=== PATIENT | male | born 1985 | race Caucasian/White ===

== ENCOUNTER 2023-02-26 21:47 | Inpatient (IN) | payer OTHER ==
--- NOTE | 2023-02-26 21:59 | ED ---
Alcohol HPI - General Stated Complaint: Alcohol Time Seen by Provider: 02/26/23 21:50 Source: patient, EMS, RN notes reviewed Mode of arrival: EMS Limitations: no limitations - History of Present Illness Initial Comments: 37-year-old male with a 16 year history of a call as any known drinks about one fifth of vodka per day who was at [facility] initially upon his arrival and a blood alcohol level of 0.2 05/23/2012 hours later he is reevaluated was 0.357. He has a history of diabetes history of pancreatitis denies any blood per rectum no vomiting. He was sent here for evaluation he also has a history depression and anxiety. MD Complaint: alcohol intoxication - Related Data Home Medications Medication Instructions Recorded Confirmed ARIPiprazole [Abilify] 10 mg PO DAILY 02/26/23 02/26/23 Acetaminophen [Tylenol] 650 mg PO Q4H PRN 02/26/23 02/26/23 Amiodarone [Cordarone] 400 mg PO DAILY 02/26/23 02/26/23 Calcium, Magnesium, Zinc, With Vit 1 tab PO TID PRN 02/26/23 02/26/23 D3 334/134/5mg Chlorpheniramine Maleate 4 mg PO Q4H PRN 02/26/23 02/26/23 [Chlor-Trimeton] Empagliflozin [Jardiance] 25 mg PO DAILY 02/26/23 02/26/23 Ezetimibe [Zetia] 10 mg PO DAILY 02/26/23 02/26/23 Fenofibrate [Lofibra] 160 mg PO DAILY 02/26/23 02/26/23 Hyoscyamine Sulfate [Levsin] 0.125 mg PO QID PRN 02/26/23 02/26/23 Ibuprofen [Motrin Ib] 600 mg PO Q6H PRN 02/26/23 02/26/23 Lipase/Protease/Amylase [Zenpep Dr 1 cap PO DAILY 02/26/23 02/26/23 40,000 Unit Capsule] Loperamide [Imodium] 4 mg PO TID PRN 02/26/23 02/26/23 Losartan [Cozaar] 12.5 mg PO DAILY 02/26/23 02/26/23 Magnesium 500 mg PO DAILY 02/26/23 02/26/23 Multivitamins, Thera [Multivitamin 1 tab PO DAILY 02/26/23 02/26/23 (formulary)] Omeprazole [PriLOSEC] 20 mg PO DAILY 02/26/23 02/26/23 PARoxetine HCL 40 mg PO DAILY 02/26/23 02/26/23 Thiamine [Vitamin B-1] 100 mg PO DAILY 02/26/23 02/26/23 allopurinoL [Zyloprim] 100 mg PO DAILY 02/26/23 02/26/23 cloNIDine HCL [Catapres] 0.1 - 0.3 mg PO DIRECTED PRN 02/26/23 02/26/23 ondansetron HCL [Zofran] 8 mg PO Q6H PRN 02/26/23 02/26/23 Allergies Allergy/AdvReac Type Severity Reaction Status Date / Time No Known Allergies Allergy Verified 02/26/23 21:57 Review of Systems ROS Statement: Those systems with pertinent positive or pertinent negative responses have been documented in the HPI. ROS Other: All systems not noted in ROS Statement are negative. Past Medical History Past Medical History: Hypertension History of Any Multi-Drug Resistant Organisms: None Reported Additional Past Surgical History / Comment(s): ICD Past Psychological History: Anxiety, Depression Smoking Status: Never smoker Past Alcohol Use History: Abuse Past Drug Use History: Marijuana General Exam - General Exam Comments Initial Comments: This is a well-developed well-nourished awake alert oriented 4 male he does have the smell of alcohol conjoiners on his breath Limitations: no limitations General appearance: alert, appears intoxicated Head exam: Present: atraumatic, normocephalic, normal inspection Eye exam: Present: normal appearance, PERRL, EOMI. Absent: scleral icterus, conjunctival injection, periorbital swelling ENT exam: Present: normal exam, mucous membranes moist Neck exam: Present: normal inspection. Absent: tenderness, meningismus, lymphadenopathy Respiratory exam: Present: normal lung sounds bilaterally. Absent: respiratory distress, wheezes, rales, rhonchi, stridor Cardiovascular Exam: Present: regular rate, normal rhythm, normal heart sounds. Absent: systolic murmur, diastolic murmur, rubs, gallop, clicks GI/Abdominal exam: Present: soft, normal bowel sounds. Absent: distended, tenderness, guarding, rebound, rigid Extremities exam: Present: normal inspection, full ROM, normal capillary refill. Absent: tenderness, pedal edema, joint swelling, calf tenderness Back exam: Present: normal inspection Neurological exam: Present: alert, oriented X3, CN II-XII intact Psychiatric exam: Present: normal mood, flat affect Skin exam: Present: warm, dry, intact, normal color. Absent: rash Course Vital Signs 02/26/23 21:50 Temperature 98.0 F Pulse Rate 100 Respiratory 18 Rate Blood Pressure 150/82 O2 Sat by Pulse 100 Oximetry Medical Decision Making - Medical Decision Making I did discuss findings with the patient patient does have evidence of elevated liver enzymes elevated bilirubin with CO2 less than 5. He does demonstrate dehydration. He is at risk for alcohol withdrawal as he does drink about a fifth of vodka per day. I did discuss this with Dr. Andersen. Patient will be admittedWas pt. sent in by a medical professional or institution (, PA, SPD MANAGER, urgent care, hospital, or care home...) When possible be specific @ -[No] Did you speak to anyone other than the patient for history (EMS, parent, family, police, friend...)? What history was obtained from this source @ -[Paramedics upon arrival] Did you review nursing and triage notes (agree or disagree)? Why? @ -[I reviewed and agree with nursing and triage notes] Were old charts reviewed (outside hosp., previous admission, EMS record, old EKG, old radiological studies, urgent care reports/EKG's, care home records)? Report findings @ -[No old charts were reviewed] Differential Diagnosis (chest pain, altered mental status, abdominal pain women, abdominal pain men, vaginal bleeding, weakness, fever, dyspnea, syncope, headache, dizziness, GI bleed, back pain, seizure, CVA, palpatations, mental health, musculoskeletal)? @ -[Alcohol intoxication, alcohol abuse, dehydration] EKG interpreted by me (3pts min.). @ -[As above] X-rays interpreted by me (1pt min.). @ -[As above] CT interpreted by me (1pt min.). @ -[None done] U/S interpreted by me (1pt. min.). @ -[None done] What testing was considered but not performed or refused? (CT, X-rays, U/S, labs)? Why? @ -[None] What meds were considered but not given or refused? Why? @ -[None] Did you discuss the management of the patient with other professionals (professionals i.e. , PA, SPD MANAGER, lab, RT, psych nurse, social media senior associate, rock wool applicator, teacher, officer captain, family service caseworker)? Give summary @ -[] Was smoking cessation discussed for >3mins.? @ -[No] Was critical care preformed (if so, how long)? @ -[No] Were there social determinants of health that impacted care today? How? (Homelessness, low income, unemployed, alcoholism, drug addiction, transportation, low edu. Level, literacy, decrease access to med. care, fpc, rehab)? @ -[Alcoholism] Was there de-escalation of care discussed even if they declined (Discuss DNR or withdrawal of care, Hospice)? DNR status @ -[No] What co-morbidities impacted this encounter? (DM, HTN, Smoking, COPD, CAD, Cancer, CVA, ARF, Chemo, Hep., AIDS, mental health diagnosis, sleep apnea, morbid obesity)? @ -[Diabetes] Was patient admitted / discharged? Hospital course, mention meds given and route, prescriptions, significant lab abnormalities, going to OR and other pertinent info. @ -[Patient was admitted for inpatient evaluation and treatment IV hydration] Undiagnosed new problem with uncertain prognosis? @ -[No] Drug Therapy requiring intensive monitoring for toxicity (Heparin, Nitro, Insulin, Cardizem)? @ -[No] Were any procedures done? @ -[No] Diagnosis/symptom? @ -[Alcoholism, dehydration, acidosis, transaminitis, hyperbilirubinemia] Acute, or Chronic, or Acute on Chronic? @ -[Acute on chronic] Uncomplicated (without systemic symptoms) or Complicated (systemic symptoms)? @ -[default] Side effects of treatment? @ -[No] Exacerbation, Progression, or Severe Exacerbation? @ -[No] Poses a threat to life or bodily function? How? (Chest pain, USA, VT, pneumonia, PE, COPD, DKA, ARF, appy, cholecystitis, CVA, Diverticulitis, Homicidal, Suicidal, threat to staff... and all critical care pts) @ -[Hyperbilirubinemia, transaminitis, dehydration] - Lab Data Result diagrams: 02/26/23 21:59 Lab Results 02/26/23 02/26/23 02/26/23 Range/Units 21:59 21:59 21:59 PT 13.7 H (9.0-12.0) sec INR 1.3 H (<1.2) Sodium 130 L (137-145) mmol/L Potassium 4.6 (3.5-5.1) mmol/L Chloride 83 L (98-107) mmol/L Carbon Dioxide <5 L* (22-30) mmol/L Anion Gap mmol/L BUN 25 H (9-20) mg/dL Creatinine 1.27 H (0.66-1.25) mg/dL Est GFR (CKD-EPI)AfAm 82 (>60 ml/min/1.73 sqM) Est GFR (CKD-EPI)NonAf 71 (>60 ml/min/1.73 sqM) Glucose 126 H (74-99) mg/dL Plasma Lactic Acid Demetrio 1.1 (0.7-2.0) mmol/L Calcium 8.7 (8.4-10.2) mg/dL Magnesium 2.5 H (1.6-2.3) mg/dL Total Bilirubin 3.2 H (0.2-1.3) mg/dL AST 121 H (17-59) U/L ALT 61 H (4-49) U/L Alkaline Phosphatase 130 H (38-126) U/L Creatine Kinase 235 H (55-170) U/L Total Protein 8.5 H (6.3-8.2) g/dL Albumin 5.4 H (3.5-5.0) g/dL Lipase 124 (23-300) U/L Urine Opiates Screen (NotDetected) Ur Oxycodone Screen (NotDetected) Urine Methadone Screen (NotDetected) Ur Propoxyphene Screen (NotDetected) Ur Barbiturates Screen (NotDetected) U Tricyclic Antidepress (NotDetected) Ur Phencyclidine Scrn (NotDetected) Ur Amphetamines Screen (NotDetected) U Methamphetamines Scrn (NotDetected) U Benzodiazepines Scrn (NotDetected) Urine Cocaine Screen (NotDetected) U Marijuana (THC) Screen (NotDetected) Serum Alcohol <10 mg/dL 02/26/23 Range/Units 22:45 PT (9.0-12.0) sec INR (<1.2) Sodium (137-145) mmol/L Potassium (3.5-5.1) mmol/L Chloride (98-107) mmol/L Carbon Dioxide (22-30) mmol/L Anion Gap mmol/L BUN (9-20) mg/dL Creatinine (0.66-1.25) mg/dL Est GFR (CKD-EPI)AfAm (>60 ml/min/1.73 sqM) Est GFR (CKD-EPI)NonAf (>60 ml/min/1.73 sqM) Glucose (74-99) mg/dL Plasma Lactic Acid Demetrio (0.7-2.0) mmol/L Calcium (8.4-10.2) mg/dL Magnesium (1.6-2.3) mg/dL Total Bilirubin (0.2-1.3) mg/dL AST (17-59) U/L ALT (4-49) U/L Alkaline Phosphatase (38-126) U/L Creatine Kinase (55-170) U/L Total Protein (6.3-8.2) g/dL Albumin (3.5-5.0) g/dL Lipase (23-300) U/L Urine Opiates Screen Not Detected (NotDetected) Ur Oxycodone Screen Not Detected (NotDetected) Urine Methadone Screen Not Detected (NotDetected) Ur Propoxyphene Screen Not Detected (NotDetected) Ur Barbiturates Screen Not Detected (NotDetected) U Tricyclic Antidepress Not Detected (NotDetected) Ur Phencyclidine Scrn Not Detected (NotDetected) Ur Amphetamines Screen Not Detected (NotDetected) U Methamphetamines Scrn Not Detected (NotDetected) U Benzodiazepines Scrn Not Detected (NotDetected) Urine Cocaine Screen Not Detected (NotDetected) U Marijuana (THC) Screen Detected H (NotDetected) Serum Alcohol mg/dL - Radiology Data Interpreted by me: Imaging interpreted by me no acute processes seen on x-rays. Disposition Clinical Impression: Alcohol withdrawal syndrome, Dehydration, Hyponatremia, Hyperbilirubinemia, Transaminitis, Acidosis Disposition: ADMITTED IP TO THIS [facility] Condition: Fair Referrals: None,Stated [Primary Care Provider] - 1-2 days Decision Date: 02/27/23 Decision Time: 00:00
[2023-02-26 22:32] LABS: INR 1.3 (<1.2); Prothrombin Time 13.7 sec (9.0-12.0)
[2023-02-26 22:42] LABS: ALT 61 U/L (4-49); African American GFR (CKD) 82 (>60 ml/min/1.73 sqM); Albumin 5.4 g/dL (3.5-5.0); Alcohol <10 mg/dL; Blood Urea Nitrogen 25 mg/dL (9-20); Calcium 8.7 mg/dL (8.4-10.2); Chloride 83 mmol/L (98-107); Creatine Kinase 235 U/L (55-170); Glucose 126 mg/dL (74-99); Lipase 124 U/L (23-300); Non-African American GFR(CKD) 71 (>60 ml/min/1.73 sqM); Sodium 130 mmol/L (137-145); Total Bilirubin 3.2 mg/dL (0.2-1.3); Total Protein 8.5 g/dL (6.3-8.2)
[2023-02-26 23:02] LABS: AST 121 U/L (17-59); Alkaline Phosphatase 130 U/L (38-126); Carbon Dioxide <5 mmol/L (22-30); Magnesium 2.5 mg/dL (1.6-2.3); Potassium 4.6 mmol/L (3.5-5.1)
[2023-02-26 23:18] LABS: Amphetamine Screen,Urine Not Detected (NotDetected); Barbiturate Screen,Urine Not Detected (NotDetected); Benzodiazepines Screen,Urine Not Detected (NotDetected); Cocaine Screen,Urine Not Detected (NotDetected); Methadone Screen, Urine Not Detected (NotDetected); Opiate Screen,Urine Not Detected (NotDetected); Oxycodone Screen, Urine Not Detected (NotDetected); Phencyclidine Screen,Urine Not Detected (NotDetected); Tricyclic Antidepressant,Urine Not Detected (NotDetected); Urn Cannabinoid Scrn Detected (NotDetected)
[2023-02-27] MEDS ORDERED: NALOXONE 0.4 MG/ML 1 ML VIAL IV PRN (00:15)
[2023-02-27] MEDS ORDERED: VIT D3 PO PRN (00:16)
[2023-02-27] MEDS ORDERED: MAGNESIUM PO PRN (00:16)
[2023-02-27] MEDS ORDERED: CALCIUM PO PRN (00:16)
[2023-02-27] MEDS ORDERED: ZINC PO PRN (00:16)
--- NOTE | 2023-02-27 00:16 | XR ---
EXAM: XR Chest, 2 Views CLINICAL HISTORY: ITS.REASON XR Reason: Intoxication TECHNIQUE: Frontal and lateral views of the chest. COMPARISON: No relevant prior studies available. FINDINGS: Lungs: Unremarkable. No consolidation. Pleural space: Unremarkable. No pneumothorax. Heart: Left-sided chest port in place. No cardiomegaly. Mediastinum: Unremarkable. Bones/joints: Unremarkable. IMPRESSION: Normal chest x-rays.
--- NOTE | 2023-02-27 00:16 | XR ---
EXAM: XR Abdomen, 2 Views CLINICAL HISTORY: ITS.REASON XR Reason: Intoxication TECHNIQUE: Frontal view of the abdomen/pelvis with upright view of the abdomen. COMPARISON: No relevant prior studies available. FINDINGS: Intraperitoneal space: No free air. Gastrointestinal tract: Mild fecal burden throughout the colon. No dilation. Bones/joints: Unremarkable. IMPRESSION: Nonobstructive bowel gas pattern.
[2023-02-27] MEDS ORDERED: LORazepam 1 MG TAB PO PRN (00:17)
[2023-02-27] MEDS: SODIUM CHLORIDE 0.9% 1,000 ML IV SCH ×3 (00:26→16:08)
--- NOTE | 2023-02-27 03:33 | P.HPIM ---
History of Present Illness H&P Date: 02/27/23 The patient is a 37-year-old male with a PMH of hypertension, type II DM, and alcohol abuse who was sent to the emergency room from [place] for an elevated alcohol level. The patient states that he has been drinking a fifth of vodka daily for the past several years and has been attempting to cut down. He wishes to go to a detox facility. He denied any physical complaints at the time of interview. He denied experiencing chest discomfort or shortness of breath, cough, nausea, vomiting, abdominal pain, diarrhea. Chest x-ray in the emergency room was unremarkable. KUB x-ray was also unr emarkable. EKG revealed sinus tachycardia at [address]/T-wave changes noted as reviewed by me. Laboratory evaluation was remarkable for INR 1.3, sodium 130, CO2 < 5, BUN 25, Cr 1.27, AST 121, and ALT 61. Urine toxicology was positive for marijuana with alcohol level < 10. ED documentation reviewed and case discussed with ED provider. Review of systems: Pertinent positives and negatives as discussed in HPI, a complete review of systems was performed and all other systems are negative. Physical examination: Vital signs reviewed General: non toxic, no distress, appears older than stated age, normal weight Derm: no unusual rashes/lesions, warm Head: atraumatic, normocephalic, symmetric Eyes: EOMI, no lid lag, anicteric sclera, pupils equal round reactive to light ENT: Nose and ears atraumatic Neck: No cervical lymphadenopathy, trachea midline, supple Mouth: no lip lesion, mucus membranes moist Cardiovascular: S1S2 reg, no murmur, positive dorsalis pedis pulse bilateral, no edema Lungs: CTA bilateral, no rhonchi, no rales, no accessory muscle use Abdominal: soft, nontender to palpation, no guarding Ext: muscle strength 5 out of 5 in all 4 extremities grossly, no gross muscle atrophy, no contractures, Neuro: CN II-XI grossly intact, no gross focal neuro deficits Psych: Alert, oriented, appropriate affect Assessment: Alcohol abuse, impending withdrawal Metabolic acidosis, likely due to alcoholic ketoacidosis Abnormal LFTs Chronic conditions: Hypertension, type II DM Imaging: Chest x-ray in the emergency room was unremarkable. KUB x-ray was also unremarkable. EKG revealed sinus tachycardia at [address]/T-wave changes noted as reviewed by me. Data Review: Laboratory evaluation was remarkable for INR 1.3, sodium 130, CO2 < 5, BUN 25, Cr 1.27, AST 121, and ALT 61. Urine toxicology was positive for marijuana with alcohol level < 10. Plan: Continue IV fluids normal saline 130 mL/hr Strongly advised patient on importance of alcohol use cessation Ativan prn with CIWA monitoring Continue thiamine and multivitamin Insulin sliding scale with blood glucose monitoring DVT prophylaxis: Heparin subq The patient is admitted with an anticipated greater than 2 midnight stay for evaluation of alcohol abuse CODE STATUS: Full Code Discussed with: Patient Anticipated discharge place: [place] Past Medical History Past Medical History: Diabetes Mellitus, Hypertension Additional Past Medical History / Comment(s): ETOH History of Any Multi-Drug Resistant Organisms: None Reported Additional Past Surgical History / Comment(s): ICD Past Anesthesia/Blood Transfusion Reactions: No Reported Reaction Past Psychological History: Anxiety, Depression Smoking Status: Never smoker Past Alcohol Use History: Abuse Past Drug Use History: Marijuana - Past Family History Father Family Medical History: COPD Medications and Allergies Home Medications Medication Instructions Recorded Confirmed Type ARIPiprazole [Abilify] 10 mg PO DAILY 02/26/23 02/26/23 History Acetaminophen [Tylenol] 650 mg PO Q4H PRN 02/26/23 02/26/23 History Amiodarone [Cordarone] 400 mg PO DAILY 02/26/23 02/26/23 History Calcium, Magnesium, Zinc, With Vit 1 tab PO TID PRN 02/26/23 02/26/23 History D3 334/134/5mg Chlorpheniramine Maleate 4 mg PO Q4H PRN 02/26/23 02/26/23 History [Chlor-Trimeton] Empagliflozin [Jardiance] 25 mg PO DAILY 02/26/23 02/26/23 History Ezetimibe [Zetia] 10 mg PO DAILY 02/26/23 02/26/23 History Fenofibrate [Lofibra] 160 mg PO DAILY 02/26/23 02/26/23 History Hyoscyamine Sulfate [Levsin] 0.125 mg PO QID PRN 02/26/23 02/26/23 History Ibuprofen [Motrin Ib] 600 mg PO Q6H PRN 02/26/23 02/26/23 History Lipase/Protease/Amylase [Zenpep Dr 1 cap PO DAILY 02/26/23 02/26/23 History 40,000 Unit Capsule] Loperamide [Imodium] 4 mg PO TID PRN 02/26/23 02/26/23 History Losartan [Cozaar] 12.5 mg PO DAILY 02/26/23 02/26/23 History Magnesium 500 mg PO DAILY 02/26/23 02/26/23 History Multivitamins, Thera [Multivitamin 1 tab PO DAILY 02/26/23 02/26/23 History (formulary)] Omeprazole [PriLOSEC] 20 mg PO DAILY 02/26/23 02/26/23 History PARoxetine HCL 40 mg PO DAILY 02/26/23 02/26/23 History Thiamine [Vitamin B-1] 100 mg PO DAILY 02/26/23 02/26/23 History allopurinoL [Zyloprim] 100 mg PO DAILY 02/26/23 02/26/23 History cloNIDine HCL [Catapres] 0.1 - 0.3 mg PO DIRECTED PRN 02/26/23 02/26/23 History ondansetron HCL [Zofran] 8 mg PO Q6H PRN 02/26/23 02/26/23 History Allergies Allergy/AdvReac Type Severity Reaction Status Date / Time No Known Allergies Allergy Verified 02/26/23 21:57 Physical Exam Vitals: Vital Signs Temp Pulse Pulse Resp BP BP Pulse Ox 02/27/23 00:48 97.6 F 101 H 18 144/82 100 02/27/23 00:31 100 16 159/87 100 02/26/23 21:50 98.0 F 100 18 150/82 100 Intake and Output 02/26/23 02/26/23 02/27/23 14:59 22:59 06:59 Other: Voiding Method Toilet Weight 96.162 kg 96.162 kg Results CBC & Chem 7: 02/26/23 21:59 Labs: Abnormal Lab Results - Last 24 Hours (Table) 02/26/23 02/26/23 02/26/23 Range/Units 21:59 21:59 22:45 PT 13.7 H (9.0-12.0) sec INR 1.3 H (<1.2) Sodium 130 L (137-145) mmol/L Chloride 83 L (98-107) mmol/L Carbon Dioxide <5 L* (22-30) mmol/L BUN 25 H (9-20) mg/dL Creatinine 1.27 H (0.66-1.25) mg/dL Glucose 126 H (74-99) mg/dL Magnesium 2.5 H (1.6-2.3) mg/dL Total Bilirubin 3.2 H (0.2-1.3) mg/dL AST 121 H (17-59) U/L ALT 61 H (4-49) U/L Alkaline Phosphatase 130 H (38-126) U/L Creatine Kinase 235 H (55-170) U/L Total Protein 8.5 H (6.3-8.2) g/dL Albumin 5.4 H (3.5-5.0) g/dL U Marijuana (THC) Screen Detected H (NotDetected) Thrombosis Risk Factor Assmnt - Choose All That Apply Any of the Below Risk Factors Present?: No Other Risk Factors: No Thrombosis Risk Factor Assessment Level: Very Low Risk
[2023-02-27] MEDS ORDERED: diphenhydrAMINE 25 MG CAP PO PRN (04:00)
[2023-02-27] MEDS ORDERED: ACETAMINOPHEN TAB 325 MG TAB PO PRN (04:00)
[2023-02-27] MEDS ORDERED: ONDANSETRON 4 MG TAB PO PRN (06:00)
[2023-02-27 07:32] LABS: HCT 40.4 % (39.0-53.0); MCH 32.5 pg (25.0-35.0); MCHC 32.1 g/dL (31.0-37.0); MCV 101.3 fL (80.0-100.0); Macrocytosis Slight; Mean Platelet Volume 8.7; RBC 3.99 m/uL (4.30-5.90); RDW 13.3 % (11.5-15.5); WBC 3.7 k/uL (3.8-10.6)
[2023-02-27 07:40] LABS: ALT 58 U/L (4-49); AST 108 U/L (17-59); African American GFR (CKD) >90 (>60 ml/min/1.73 sqM); Albumin 4.9 g/dL (3.5-5.0); Albumin/Globulin Ratio 1.8; Alkaline Phosphatase 131 U/L (38-126); Anion Gap 34 mmol/L; Blood Urea Nitrogen 21 mg/dL (9-20); Calcium 8.2 mg/dL (8.4-10.2); Chloride 89 mmol/L (98-107); Globulin 2.8 g/dL; Glucose 113 mg/dL (74-99); Non-African American GFR(CKD) 86 (>60 ml/min/1.73 sqM); Potassium 3.8 mmol/L (3.5-5.1); Sodium 130 mmol/L (137-145); Total Bilirubin 2.9 mg/dL (0.2-1.3); Total Protein 7.7 g/dL (6.3-8.2)
[2023-02-27 07:50] LABS: Carbon Dioxide 7 mmol/L (22-30)
[2023-02-27 07:51] LABS: Glucose,Whole Blood 129 mg/dL (70-110)
[2023-02-27] MEDS: INSULIN ASPART (NovoLOG) 100 UNIT/ML VIAL SQ SCH ×4 (08:01→20:32)
[2023-02-27] MEDS: AMIODARONE 200 MG TAB PO SCH (08:03)
[2023-02-27] MEDS: PARoxetine 20 MG TAB PO SCH (08:03)
[2023-02-27] MEDS: LOSARTAN 25 MG TAB PO SCH (08:03)
[2023-02-27] MEDS: HEPARIN SODIUM,PORCINE/PF 5,000 UNIT/0.5 ML SYRINGE SQ SCH ×3 (08:03→23:58)
[2023-02-27] MEDS: PANTOPRAZOLE 40 MG TABLET PO SCH (08:03)
[2023-02-27] MEDS: MAGNESIUM OXIDE 400 MG TAB PO SCH (08:03)
[2023-02-27] MEDS: EZETIMIBE 10 MG TAB PO SCH (08:03)
[2023-02-27] MEDS: LIPASE 20,000/PROTEASE 63,000/AMYLASE 84,000 PO SCH (08:04)
[2023-02-27] MEDS: ARIPiprazole 10 MG TAB PO SCH (08:04)
[2023-02-27] MEDS: allopurinoL 100 MG TAB PO SCH (08:04)
[2023-02-27] MEDS: FENOFIBRATE 160 MG TAB PO SCH (08:05)
[2023-02-27] MEDS: MULTIVITAMINS, THERA 1 EACH TAB PO SCH (08:05)
[2023-02-27 08:33] LABS: Platelet Count 38 k/uL (150-450)
[2023-02-27] MEDS ORDERED: DAPAGLIFLOZIN PROPANEDIOL 10 MG TABLET PO SCH (09:00)
[2023-02-27] MEDS ORDERED: HYOSCYAMINE SULFATE 0.125 MG TAB PO PRN (09:00)
[2023-02-27] MEDS ORDERED: LOPERAMIDE 2 MG CAP PO PRN (09:00)
[2023-02-27] MEDS ORDERED: IBUPROFEN 600 MG TAB PO PRN (09:00)
[2023-02-27] MEDS ORDERED: THIAMINE 100 MG TAB PO SCH (09:00)
[2023-02-27] MEDS ORDERED: SODIUM BICARB 8.4% 50 ML SYR (1 MEQ/ML) IV STA ×2 (10:22→19:01)
[2023-02-27 11:16] LABS: Glucose,Whole Blood 112 mg/dL (70-110)
[2023-02-27 17:11] LABS: Glucose,Whole Blood 120 mg/dL (70-110)
--- NOTE | 2023-02-27 17:52 | P.PN ---
Subjective Progress Note Date: 02/27/23 Hospital course: Patient is a very pleasant 37-year-old male with a past medical history of alcohol abuse, hypertension, and type 2 diabetes. He presented to the emergency department from [place] for concerns of alcohol withdrawal. Patient underwent full evaluation in the emergency department. Labs completed and reviewed. CBC showing leukopenia with WBC count of 3.7 and thrombocytopenia with platelet count of 38. Coagulation profile revealing an elevated PT of 13.7 and elevated INR 1.3. BMP revealing hyponatremia with sodium of 1:30, hypochloremia with chloride of 83, and bicarbonate of less than 5. Liver enzymes elevated with AST of 121, ALT of 61, an alkaline phosphatase of 130. Urine drug screen positive for marijuana. KUB completed showing nonobstructive bowel gas pattern. Chest x-ray completed negative for acute cardiopulmonary process. EKG completed showing sinus tachycardia at 101 bpm. Patient admitted under our services for alcoholic ketoacidosis at this time. Physical exam: Vital signs reviewed and stable. General: Nontoxic, no distress and appears stated age. Derm: Skin warm and dry, normal coloration for ethnicity. Head: Atraumatic, normocephalic and symmetric. Eyes: EOMs intact, no lid lag, and anicteric sclera Mouth: no lip lesions, mucus membranes moist Cardiovascular: regular rate and rhythm with normal S1S2, no murmur, positive posterior tibial pulses bilaterally, and cap refill < 2 seconds. Lungs: Respirations even, regular, and unlabored on room air. Lungs CTA bilaterally, no rhonchi, no rales, no wheezing, and no accessory muscle usage. Abdominal: soft, nontender to palpation, no guarding, no appreciable organom egaly Ext: ROM intact. No gross muscle atrophy, no edema, no contractures Neuro: Speech clear, face symmetrical and CN II-XII grossly intact with no noted focal neuro deficits Psych: Alert and oriented to person, place, time, and situation. Appropriate and pleasant affect. Assessment and Plan of Care: Alcohol abuse with current alcohol withdrawal Metabolic acidosis secondary to Alcoholic ketoacidosis Transaminitis secondary to chronic daily drinking Hypochloremic Hyponatremia secondary to alcohol abuse -Monitoring of CIWA scores to continue and patient to be medicated with Ativan 0.5 mg every 4 hours as needed for CIWA score of 4-5, Ativan 1 mg every 4 hours for CIWA score of 6-7, Ativan 2 mg every 3 hours CIWA score of 8-9, and Ativan 2 mg every 2 hours forr CIWA score of 10 or greater. -Seizure, fall, and aspiration precautions to remain in place. -Continue with IV fluid hydration at 130 mL's per hour. -Morning labs reviewed. BMP revealing persistent hyponatremia with sodium 1:30, hypochloremia with chloride improving to 89, and bicarb increasing to 7. Transaminitis remains with AST of 108, ALT of 58, and alkaline phosphatase of 131. -Order placed for sodium bicarb 50 mg 1 dose and we will repeat BMP at 2 PM and again tomorrow morning in place additional orders based upon these results. Hypertension -Monitor vital signs and continue daily medication regimen with losartan 12.5 mg daily and amiodarone 400 mg daily. Hyperlipidemia -Continue daily medication regimen with Zetia 10 mg daily and fenofibrate 160 mg daily, Diabetes mellitus -Morning glucose is 113. -Continue glycemic protocol with NovoLog sliding scale. CODE STATUS: Full code DVT prophylaxis: Heparin Discussed with: Patient and RN Anticipated discharge date: Clinical course to determine Anticipated discharge place: Home Patient was seen independently by Nurse Pracitioner. This document was prepared using [email or web address] dictation software. Please allow for errors in pipe coverer, while rare they do occur. Objective - Vital Signs Vital signs: Vital Signs Temp 97.8 F 02/27/23 08:04 Pulse 89 02/27/23 08:04 Resp 20 02/27/23 08:04 BP 131/79 02/27/23 08:04 Pulse Ox 98 02/27/23 08:04 FiO2 Intake & Output 02/26/23 02/27/23 02/27/23 18:59 06:59 18:59 Weight 96.162 kg Other: Voiding Method Toilet # Voids 1 - Labs CBC & Chem 7: 02/27/23 06:29 02/27/23 06:29 Labs: Abnormal Lab Results - Last 24 Hours (Table) 02/26/23 02/26/23 02/26/23 Range/Units 21:59 21:59 22:45 WBC (3.8-10.6) k/uL RBC (4.30-5.90) m/uL MCV (80.0-100.0) fL Plt Count (150-450) k/uL PT 13.7 H (9.0-12.0) sec INR 1.3 H (<1.2) Sodium 130 L (137-145) mmol/L Chloride 83 L (98-107) mmol/L Carbon Dioxide <5 L* (22-30) mmol/L BUN 25 H (9-20) mg/dL Creatinine 1.27 H (0.66-1.25) mg/dL Glucose 126 H (74-99) mg/dL POC Glucose (mg/dL) (70-110) mg/dL Calcium (8.4-10.2) mg/dL Magnesium 2.5 H (1.6-2.3) mg/dL Total Bilirubin 3.2 H (0.2-1.3) mg/dL AST 121 H (17-59) U/L ALT 61 H (4-49) U/L Alkaline Phosphatase 130 H (38-126) U/L Creatine Kinase 235 H (55-170) U/L Total Protein 8.5 H (6.3-8.2) g/dL Albumin 5.4 H (3.5-5.0) g/dL U Marijuana (THC) Screen Detected H (NotDetected) 02/27/23 02/27/23 02/27/23 Range/Units 06:29 06:29 07:49 WBC 3.7 L (3.8-10.6) k/uL RBC 3.99 L (4.30-5.90) m/uL MCV 101.3 H (80.0-100.0) fL Plt Count 38 L (150-450) k/uL PT (9.0-12.0) sec INR (<1.2) Sodium 130 L (137-145) mmol/L Chloride 89 L (98-107) mmol/L Carbon Dioxide 7 L* (22-30) mmol/L BUN 21 H (9-20) mg/dL Creatinine (0.66-1.25) mg/dL Glucose 113 H (74-99) mg/dL POC Glucose (mg/dL) 129 H (70-110) mg/dL Calcium 8.2 L (8.4-10.2) mg/dL Magnesium (1.6-2.3) mg/dL Total Bilirubin 2.9 H (0.2-1.3) mg/dL AST 108 H (17-59) U/L ALT 58 H (4-49) U/L Alkaline Phosphatase 131 H (38-126) U/L Creatine Kinase (55-170) U/L Total Protein (6.3-8.2) g/dL Albumin (3.5-5.0) g/dL U Marijuana (THC) Screen (NotDetected)
[2023-02-27 18:03] LABS: African American GFR (CKD) >90 (>60 ml/min/1.73 sqM); Anion Gap 31 mmol/L; Blood Urea Nitrogen 18 mg/dL (9-20); Calcium 7.8 mg/dL (8.4-10.2); Chloride 93 mmol/L (98-107); Glucose 116 mg/dL (74-99); Non-African American GFR(CKD) >90 (>60 ml/min/1.73 sqM); Potassium 3.8 mmol/L (3.5-5.1); Sodium 131 mmol/L (137-145)
[2023-02-27 18:11] LABS: Carbon Dioxide 7 mmol/L (22-30)
[2023-02-27 19:42] LABS: VBG PH 7.25 (7.31-7.41)
[2023-02-27] MEDS: DEXTROSE 5%-0.9% NACL 1,000 ML IV SCH (20:26)
[2023-02-27] MEDS: THIAMINE 100 MG/ML 2 ML VIAL IV SCH (20:26)
[2023-02-27] MEDS ORDERED: THIAMINE 100 MG in SODIUM CHLORIDE 0.9% 50 ML IVPB SCH (21:00)
[2023-02-28 01:04] LABS: Appearance,Urine Clear (Clear); Bilirubin,Urine Negative (Negative); Blood,Urine Negative (Negative); Color,Urine Yellow; Glucose,Urine (UA) 4+ (Negative); Leukocyte Esterase,Urine Negative (Negative); Nitrite,Urine Negative (Negative); Protein,Urine Trace (Negative); Specific Gravity,Urine 1.018 (1.001-1.035); Urobilinogen,Urine <2.0 mg/dL (<2.0)
[2023-02-28 01:08] LABS: Ketones,Urine 4+ (Negative)
[2023-02-28 01:16] LABS: Glucose,Whole Blood 144 mg/dL (70-110)
[2023-02-28] MEDS: DEXTROSE 5%-0.9% NACL 1,000 ML IV SCH ×3 (05:56→16:57)
[2023-02-28 07:19] LABS: Glucose,Whole Blood 129 mg/dL (70-110)
[2023-02-28] MEDS: INSULIN ASPART (NovoLOG) 100 UNIT/ML VIAL SQ SCH ×5 (07:22→20:21)
[2023-02-28] MEDS: HEPARIN SODIUM,PORCINE/PF 5,000 UNIT/0.5 ML SYRINGE SQ SCH ×2 (09:52→16:57)
[2023-02-28] MEDS: allopurinoL 100 MG TAB PO SCH (09:53)
[2023-02-28] MEDS: MAGNESIUM OXIDE 400 MG TAB PO SCH (09:53)
[2023-02-28] MEDS: EZETIMIBE 10 MG TAB PO SCH (09:53)
[2023-02-28] MEDS: LOSARTAN 25 MG TAB PO SCH (09:53)
[2023-02-28] MEDS: FENOFIBRATE 160 MG TAB PO SCH (09:53)
[2023-02-28] MEDS: LIPASE 20,000/PROTEASE 63,000/AMYLASE 84,000 PO SCH (09:53)
[2023-02-28] MEDS: PARoxetine 20 MG TAB PO SCH (09:54)
[2023-02-28] MEDS: ARIPiprazole 10 MG TAB PO SCH (09:54)
[2023-02-28] MEDS: AMIODARONE 200 MG TAB PO SCH (09:54)
[2023-02-28] MEDS: PANTOPRAZOLE 40 MG TABLET PO SCH (09:54)
[2023-02-28] MEDS: THIAMINE 100 MG/ML 2 ML VIAL IV SCH ×2 (09:54→20:24)
[2023-02-28] MEDS: MULTIVITAMINS, THERA 1 EACH TAB PO SCH (09:54)
[2023-02-28 11:00] LABS: Glucose,Whole Blood 137 mg/dL (70-110)
[2023-02-28 12:37] LABS: Glucose,Whole Blood 140 mg/dL (70-110)
[2023-02-28 14:44] LABS: African American GFR (CKD) 89.3 (60.0-200.0); Albumin 4.7 g/dL (3.8-4.9); Albumin/Globulin Ratio 1.86 (1.60-3.17); Anion Gap 29.1 mmol/L (10.00-18.00); BUN/Creat Ratio 11.93 Ratio (12.00-20.00); Blood Urea Nitrogen 14.2 mg/dL (9.0-27.0); Carbon Dioxide 15.1 mmol/L (20.0-27.5); Globulin 2.5 g/dL (1.6-3.3); Magnesium 2.3 mg/dL (1.5-2.4); Potassium 3.4 mmol/L (3.5-5.5); Total Bilirubin 1.8 mg/dL (0.30-1.20); Total Protein 7.2 g/dL (6.2-8.2)
[2023-02-28 15:04] LABS: HGB 13.2 g/dL (13.0-17.0); MCH 32.2 pg (27.0-32.0); MCV 97.6 fL (80.0-97.0); Mean Platelet Volume 10.7 fL (9.5-12.2); NRBC Per 100 WBC 0 /100 WBCS (0.0-0.0); Platelet Count 30 X 10*3/uL (140-440); RDW 12.6 % (11.5-14.5); WBC 3.35 X 10*3/uL (4.50-10.00)
[2023-02-28 15:05] LABS: Immature Platelet Fraction 4.6 % (1.1-6.1)
--- NOTE | 2023-02-28 15:13 | P.PN ---
Subjective Progress Note Date: 02/28/23 Hospital course The patient is a 37-year-old male with a PMH of hypertension, type II DM, and alcohol abuse who was sent to the emergency room from [place] for an elevated alcohol level. The patient states that he has been drinking a fifth of vodka daily for the past several years and has been attempting to cut down. He wishes to go to a detox facility. He denied any physical complaints at the time of interview. He denied experiencing chest discomfort or shortness of breath, cough, nausea, vomiting, abdominal pain, diarrhea. Chest x-ray in the emergency room was unremarkable. KUB x-ray was also unremarkable. Laboratory evaluation was remarkable for INR 1.3, sodium 130, CO2 < 5, BUN 25, Cr 1.27, AST 121, and ALT 61. Urine toxicology was positive for marijuana with alcohol level < 10. Patient was started on aggressive IV fluids for metabolic acidosis secondary to alcoholic ketoacidosis. Patient also being treated for alcohol withdrawal. Patient this morning states that he has some mild alcohol withdrawal symptoms. He is denying any diaphoresis hallucinations or tremors. Patient also stated that he does not have an appetite to eat. I encouraged the patient. 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 Bilirubin improved from 2.9-1.8. LFTs are stable. 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 Hypertension Type 2 diabetes mellitus Plan Continue with normal saline 130 mL an hour Patient counseled on alcohol cessation [facility] protocol Continue thiamine and multivitamin Sliding scale insulin DVT prophylaxis: Subcu heparin Anticipated discharge: Tomorrow bicarb continues to improve and patient not in withdrawal and has required less than 4 mg of Ativan in [address]: [place] Objective - Vital Signs Vital signs: Vital Signs Temp 97.8 F 02/28/23 11:36 Pulse 88 02/28/23 11:36 Resp 20 02/28/23 11:36 BP 138/78 02/28/23 11:36 Pulse Ox 99 02/28/23 11:36 FiO2 Intake & Output 02/27/23 02/28/23 02/28/23 18:59 06:59 18:59 Intake Total 120 Output Total 1150 Balance -1030 Intake: Oral 120 Output: Urine 1150 Other: Voiding Method Toilet Urinal # Voids 3 - Labs CBC & Chem 7: 02/28/23 06:12 02/28/23 06:12 Labs: Abnormal Lab Results - Last 24 Hours (Table) 02/27/23 02/27/23 02/27/23 Range/Units 16:55 17:10 19:19 WBC (4.50-10.00) X 10*3/uL RBC (4.40-5.60) X 10*6/uL MCV (80.0-97.0) fL MCH (27.0-32.0) pg Plt Count (140-440) X 10*3/uL VBG pH 7.25 L (7.31-7.41) VBG pCO2 26 L (37-51) mmHg VBG HCO3 11 L (24-28) mmol/L Sodium 131 L (137-145) mmol/L Potassium (3.5-5.5) mmol/L Chloride 93 L (98-107) mmol/L Carbon Dioxide 7 L* (22-30) mmol/L Anion Gap (10.00-18.00) mmol/L BUN/Creatinine Ratio (12.00-20.00) Ratio Glucose 116 H (74-99) mg/dL POC Glucose (mg/dL) 120 H (70-110) mg/dL Calcium 7.8 L (8.4-10.2) mg/dL Total Bilirubin (0.30-1.20) mg/dL AST (14-35) U/L ALT (10-49) U/L Alkaline Phosphatase (41-126) U/L Urine Protein (Negative) Urine Glucose (UA) (Negative) Urine Ketones (Negative) 02/27/23 02/28/23 02/28/23 Range/Units 20:13 00:43 01:12 WBC (4.50-10.00) X 10*3/uL RBC (4.40-5.60) X 10*6/uL MCV (80.0-97.0) fL MCH (27.0-32.0) pg Plt Count (140-440) X 10*3/uL VBG pH (7.31-7.41) VBG pCO2 (37-51) mmHg VBG HCO3 (24-28) mmol/L Sodium (137-145) mmol/L Potassium (3.5-5.5) mmol/L Chloride (98-107) mmol/L Carbon Dioxide (22-30) mmol/L Anion Gap (10.00-18.00) mmol/L BUN/Creatinine Ratio (12.00-20.00) Ratio Glucose (74-99) mg/dL POC Glucose (mg/dL) 140 H 144 H (70-110) mg/dL Calcium (8.4-10.2) mg/dL Total Bilirubin (0.30-1.20) mg/dL AST (14-35) U/L ALT (10-49) U/L Alkaline Phosphatase (41-126) U/L Urine Protein Trace H (Negative) Urine Glucose (UA) 4+ H (Negative) Urine Ketones 4+ H (Negative) 02/28/23 02/28/23 02/28/23 Range/Units 06:12 06:12 07:16 WBC 3.35 L (4.50-10.00) X 10*3/uL RBC 4.10 L (4.40-5.60) X 10*6/uL MCV 97.6 H (80.0-97.0) fL MCH 32.2 H (27.0-32.0) pg Plt Count 30 L (140-440) X 10*3/uL VBG pH (7.31-7.41) VBG pCO2 (37-51) mmHg VBG HCO3 (24-28) mmol/L Sodium (137-145) mmol/L Potassium 3.4 L (3.5-5.5) mmol/L Chloride 93 L (98-107) mmol/L Carbon Dioxide 15.1 L (22-30) mmol/L Anion Gap 29.10 H (10.00-18.00) mmol/L BUN/Creatinine Ratio 11.93 L (12.00-20.00) Ratio Glucose 125 H (74-99) mg/dL POC Glucose (mg/dL) 129 H (70-110) mg/dL Calcium (8.4-10.2) mg/dL Total Bilirubin 1.80 H (0.30-1.20) mg/dL AST 124 H (14-35) U/L ALT 66 H (10-49) U/L Alkaline Phosphatase 143 H (41-126) U/L Urine Protein (Negative) Urine Glucose (UA) (Negative) Urine Ketones (Negative) 02/28/23 Range/Units 10:58 WBC (4.50-10.00) X 10*3/uL RBC (4.40-5.60) X 10*6/uL MCV (80.0-97.0) fL MCH (27.0-32.0) pg Plt Count (140-440) X 10*3/uL VBG pH (7.31-7.41) VBG pCO2 (37-51) mmHg VBG HCO3 (24-28) mmol/L Sodium (137-145) mmol/L Potassium (3.5-5.5) mmol/L Chloride (98-107) mmol/L Carbon Dioxide (22-30) mmol/L Anion Gap (10.00-18.00) mmol/L BUN/Creatinine Ratio (12.00-20.00) Ratio Glucose (74-99) mg/dL POC Glucose (mg/dL) 137 H (70-110) mg/dL Calcium (8.4-10.2) mg/dL Total Bilirubin (0.30-1.20) mg/dL AST (14-35) U/L ALT (10-49) U/L Alkaline Phosphatase (41-126) U/L Urine Protein (Negative) Urine Glucose (UA) (Negative) Urine Ketones (Negative)
[2023-02-28 17:47] LABS: Glucose,Whole Blood 192 mg/dL (70-110)
[2023-02-28 20:11] LABS: Glucose,Whole Blood 138 mg/dL (70-110)
[2023-02-28 20:40] VITALS: RESP 16
[2023-03-01] MEDS: HEPARIN SODIUM,PORCINE/PF 5,000 UNIT/0.5 ML SYRINGE SQ SCH ×2 (00:52→07:54)
[2023-03-01 07:09] LABS: African American GFR (CKD) >90 (>60 ml/min/1.73 sqM); Anion Gap 7 mmol/L; Blood Urea Nitrogen 6 mg/dL (9-20); Calcium 9.1 mg/dL (8.4-10.2); Carbon Dioxide 34 mmol/L (22-30); Chloride 96 mmol/L (98-107); Glucose 136 mg/dL (74-99); Non-African American GFR(CKD) >90 (>60 ml/min/1.73 sqM); Potassium 3.6 mmol/L (3.5-5.1); Sodium 137 mmol/L (137-145)
[2023-03-01 07:30] VITALS: BP 152/73; PULSE 82; TEMP 97.9
[2023-03-01 07:34] LABS: Glucose,Whole Blood 139 mg/dL (70-110)
[2023-03-01] MEDS: INSULIN ASPART (NovoLOG) 100 UNIT/ML VIAL SQ SCH ×2 (07:46→12:33)
[2023-03-01] MEDS: AMIODARONE 200 MG TAB PO SCH (07:53)
[2023-03-01] MEDS: LOSARTAN 25 MG TAB PO SCH (07:53)
[2023-03-01] MEDS: ARIPiprazole 10 MG TAB PO SCH (07:53)
[2023-03-01] MEDS: EZETIMIBE 10 MG TAB PO SCH (07:53)
[2023-03-01] MEDS: FENOFIBRATE 160 MG TAB PO SCH (07:53)
[2023-03-01] MEDS: MAGNESIUM OXIDE 400 MG TAB PO SCH (07:53)
[2023-03-01] MEDS: PANTOPRAZOLE 40 MG TABLET PO SCH (07:53)
[2023-03-01] MEDS: allopurinoL 100 MG TAB PO SCH (07:53)
[2023-03-01] MEDS: PARoxetine 20 MG TAB PO SCH (07:53)
[2023-03-01] MEDS: LIPASE 20,000/PROTEASE 63,000/AMYLASE 84,000 PO SCH (07:53)
[2023-03-01] MEDS: MULTIVITAMINS, THERA 1 EACH TAB PO SCH (07:53)
[2023-03-01] MEDS: THIAMINE 100 MG/ML 2 ML VIAL IV SCH (07:54)
--- NOTE | 2023-03-01 09:59 | P.DS ---
Providers Date of admission: 02/27/23 00:15 Attending physician: Miki Andersen MD Primary care physician: Stated None Hospital Course: Discharge Diagnosis: Alcohol withdrawal Metabolic acidosis likely due to alcoholic ketoacidosis Transaminitis secondary to alcohol abuse. Patient asymptomatic Hypertension Type 2 diabetes mellitus Hospital Course: The patient is a 37-year-old male with a PMH of hypertension, type II DM, and alcohol abuse who was sent to the emergency room from [place] for an elevated alcohol level. The patient states that he has been drinking a fifth of vodka daily for the past several years and has been attempting to cut down. He wishes to go to a detox facility. He denied any physical complaints at the time of interview. He denied experiencing chest discomfort or shortness of breath, cough, nausea, vomiting, abdominal pain, diarrhea. Chest x-ray in the emergency room was unremarkable. KUB x-ray was also unremarkable. Laboratory evaluation was remarkable for INR 1.3, sodium 130, CO2 < 5, BUN 25, Cr 1.27, AST 121, and ALT 61. Urine toxicology was positive for marijuana with alcohol level < 10. Patient was started on aggressive IV fluids for metabolic acidosis secondary to alcoholic ketoacidosis. Patient is also treated for alcohol withdrawal per [facility] protocol. At the time of discharge patient's bicarbonate level had improved. Patient overall was feeling much better. He did not require any Ativan in the past 24 hours. Patient was then deemed stable for discharge to [place] Patient seen and examined at bedside on 03/01/2023.[] Vital signs reviewed and stable. General: [non toxic], [no distress], [appears at stated age] Derm: [warm], [dry] Head: [atraumatic], [normocephalic], [symmetric] Eyes: [EOMI], [no lid lag], [anicteric sclera] Mouth: [no lip lesion], [mucus membranes moist] Cardiovascular: [S1S2 reg], [no murmur], [positive posterior tibial pulse bilateral], Lungs: [CTA bilateral], [no rhonchi, no rales] , [no accessory muscle use] Abdominal: [soft], [ nontender to palpation], [no guarding], [no appreciable organomegaly] Ext: [no gross muscle atrophy], [no edema], [no contractures] Neuro: [ CN II-XI grossly intact], [no focal neuro deficits] Psych: [Alert], [oriented], [appropriate affect] A total of [33] minutes of time were spent preparing this complex discharge summary . Patient Condition at Discharge: Fair Plan - Discharge Summary Discharge Rx Participant: No New Discharge Prescriptions: Continue ondansetron HCL [Zofran] 8 mg PO Q6H PRN PRN Reason: Nausea Multivitamins, Thera [Multivitamin (formulary)] 1 tab PO DAILY Ibuprofen [Motrin Ib] 600 mg PO Q6H PRN PRN Reason: Pain Or Fever > 100.5 Hyoscyamine Sulfate [Levsin] 0.125 mg PO QID PRN PRN Reason: CRAMPING Calcium, Magnesium, Zinc, With Vit D3 334/134/5mg 1 tab PO TID PRN PRN Reason: withdrawl symptoms PARoxetine HCL 40 mg PO DAILY Omeprazole [PriLOSEC] 20 mg PO DAILY Empagliflozin [Jardiance] 25 mg PO DAILY allopurinoL [Zyloprim] 100 mg PO DAILY Ezetimibe [Zetia] 10 mg PO DAILY Acetaminophen [Tylenol] 650 mg PO Q4H PRN PRN Reason: Pain Or Fever > 100.5 Thiamine [Vitamin B-1] 100 mg PO DAILY Loperamide [Imodium] 4 mg PO TID PRN PRN Reason: Diarrhea Chlorpheniramine Maleate [Chlor-Trimeton] 4 mg PO Q4H PRN PRN Reason: withdrawl symptoms Lipase/Protease/Amylase [Zenpep Dr 40,000 Unit Capsule] 1 cap PO DAILY Magnesium 500 mg PO DAILY Losartan [Cozaar] 12.5 mg PO DAILY Fenofibrate [Lofibra] 160 mg PO DAILY Amiodarone [Cordarone] 400 mg PO DAILY ARIPiprazole [Abilify] 10 mg PO DAILY Discontinued cloNIDine HCL [Catapres] 0.1 - 0.3 mg PO DIRECTED PRN PRN Reason: BP >160/100 Discharge Medication List ARIPiprazole [Abilify] 10 mg PO DAILY 02/26/23 [History] Acetaminophen [Tylenol] 650 mg PO Q4H PRN 02/26/23 [History] Amiodarone [Cordarone] 400 mg PO DAILY 02/26/23 [History] Calcium, Magnesium, Zinc, With Vit D3 334/134/5mg 1 tab PO TID PRN 02/26/23 [History] Chlorpheniramine Maleate [Chlor-Trimeton] 4 mg PO Q4H PRN 02/26/23 [History] Empagliflozin [Jardiance] 25 mg PO DAILY 02/26/23 [History] Ezetimibe [Zetia] 10 mg PO DAILY 02/26/23 [History] Fenofibrate [Lofibra] 160 mg PO DAILY 02/26/23 [History] Hyoscyamine Sulfate [Levsin] 0.125 mg PO QID PRN 02/26/23 [History] Ibuprofen [Motrin Ib] 600 mg PO Q6H PRN 02/26/23 [History] Lipase/Protease/Amylase [Zenpep Dr 40,000 Unit Capsule] 1 cap PO DAILY 02/26/23 [History] Loperamide [Imodium] 4 mg PO TID PRN 02/26/23 [History] Losartan [Cozaar] 12.5 mg PO DAILY 02/26/23 [History] Magnesium 500 mg PO DAILY 02/26/23 [History] Multivitamins, Thera [Multivitamin (formulary)] 1 tab PO DAILY 02/26/23 [History] Omeprazole [PriLOSEC] 20 mg PO DAILY 02/26/23 [History] PARoxetine HCL 40 mg PO DAILY 02/26/23 [History] Thiamine [Vitamin B-1] 100 mg PO DAILY 02/26/23 [History] allopurinoL [Zyloprim] 100 mg PO DAILY 02/26/23 [History] ondansetron HCL [Zofran] 8 mg PO Q6H PRN 02/26/23 [History] Follow up Appointment(s)/Referral(s): None,Stated [Primary Care Provider] - 1-2 days Activity/Diet/Wound Care/Special Instructions: nurse to call report to [place] when pt medically cleared for d/c. Discharge Disposition: HOME SELF-CARE
[2023-03-01] MEDS: DEXTROSE 5%-0.9% NACL 1,000 ML IV SCH (10:44)
[2023-03-01 11:23] LABS: Glucose,Whole Blood 155 mg/dL (70-110)
== END 2023-03-01 14:20 | disposition home or self-care (01) | DRG 775 ==
LOC: EC 21:47 → 5NMEDONC 02-27 00:15
PROVIDERS: ADMIT Internal Medicine; ATTEND Internal Medicine
DX: F10.229 Alcohol dependence with intoxication, unspecified (principal); E87.29 Other acidosis; D69.6 Thrombocytopenia, unspecified; F10.239 Alcohol dependence with withdrawal, unspecified; E87.8 Other disorders of electrolyte and fluid balance, not elsewhere classified; E86.0 Dehydration; I10 Essential (primary) hypertension; F32.A Depression, unspecified; E11.9 Type 2 diabetes mellitus without complications; R74.01 Elevation of levels of liver transaminase levels; R00.0 Tachycardia, unspecified; E87.1 Hypo-osmolality and hyponatremia; E80.6 Other disorders of bilirubin metabolism; F41.9 Anxiety disorder, unspecified; Y90.1 Blood alcohol level of 20-39 mg/100 ml; D72.819 Decreased white blood cell count, unspecified; E78.5 Hyperlipidemia, unspecified; Z79.899 Other long term (current) drug therapy; Z79.84 Long term (current) use of oral hypoglycemic drugs; Z87.19 Personal history of other diseases of the digestive system
CPT/HCPCS: 36415; 71046; 74018; 80048; 80053; 80306; 80320; 81003; 82009; 82550; 82803; 83605; 83690; 83735; 85027; 85610; 93005; 99285